=== PATIENT | male | born 1985 | race Hispanic/Latino ===

== ENCOUNTER → 2020-02-04 | Day surgery (SDC) | payer OTHER ==
[~2020-02-04] MED LIST: ACETAMINOPHEN/CODEINE 300MG - 30MG TAB ONE; CEFAZOLIN SOD 1 GM/NS 50ML 50 ML IV ONE; DEXAMETHASONE SOD PHOS INJ 4 MG/ML VIAL ONE; FENTANYL CITRATE/PF 100MCG/2 ML INJ ONE; KETOROLAC TROMETHAMINE 30 MG/ML VIAL ONE; LIDOCAINE 2%/ EPINEPHRINE 20ML MDV ONE; LIDOCAINE HCL 2% LOCAL INJ 5 ML SDV VIAL INJ ONE; MIDAZOLAM HCL 2 MG/2 ML VIAL ONE; ONDANSETRON HCL INJ 2MG/ML 2ML 2 MG/ML VIAL ONE; PROPOFOL IV EMULSION 10 MG/ML 20 ML VIAL ONE; ROPIVACAINE 0.5% 5 MG/ML 30 ML SDV ONE; SEVOFLURANE INHAL SOLN 250 ML PEN BTL ONE
--- NOTE | 2020-02-04 09:19 | Operative Report ---
DATE OF PROCEDURE: 02/04/2020 SURGEON: Saleem Patino MD NARCOTICS AGENT: Juan Miguel Gilbert, certified PA. PREOPERATIVE DIAGNOSIS: Right knee medial meniscal tear, anterior cruciate ligament tear. POSTOPERATIVE DIAGNOSIS: Right knee medial meniscal tear, anterior cruciate ligament tear. PROCEDURE: Right knee arthroscopy, partial medial meniscectomy, ACL reconstruction using hamstring allograft. 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 He has complained of pain and instability for years. This is worsened in the last few months. He would like to have this surgically reconstructed. The risks and benefits of the procedure have been discussed. The recovery has been explained. The pros and cons of allograft versus autograft have been thoroughly explained. He states he understands and wishes to proceed. PROCEDURE IN DETAIL: The patient was brought to the operating room and placed under general anesthetic. He received prophylactic antibiotics and a regional block in the holding area. His right lower extremity was prepped and draped in a sterile manner. A preoperative time-out was performed. The extremity was exsanguinated and a proximal tourniquet was inflated to 300 mmHg. Standard arthroscopy portals were established. The knee was insufflated with sterile saline and systematically inspected. He was noted to have a complex tear of the medial meniscus. There was a large radial fragment that was flipped up into the medial gutter. A partial medial meniscectomy was performed using a combination of biting forceps and a mechanical shaver. The meniscus was severely frayed and worn. I would estimate that 40% of the entire meniscus was excised. The articular surfaces were well preserved. The patellofemoral groove was also noted to be normal. The lateral compartment was inspected and probed. There was no evidence of any lateral meniscal tear or wear in the lateral compartment. The anterior cruciate ligament was chronically torn. A bone-cutting bur was used to perform a notchplasty. An extra-articular alignment guide was used to place a guide pin through the footprint of the previous ACL. The placement of this pin was also referenced off the posterior border of the anterior horn of the lateral meniscus. A hamstring allograft was sized on the back table at 10 mm in diameter. A 10 mm reamer was placed over the guide pin. The knee was cleared of all bone debris. A 5 mm [id number] guide was then used to place a femoral guide pin. This was brought out the anterior cortex and soft tissue. This was reamed to 35 mm using an [place] 10 mm reamer. The 4.0 mm Endobutton drill was then placed. The total length of the Endobutton was 45 mm. A 20 mm Endobutton was chosen. This was attached to the graft. The graft was passed and the Endobutton was deployed over the anterolateral femoral cortex. The knee was cycled with tension applied. A 10 mm x 25 mm bioabsorbable interference screw was placed into the tibial tunnel. The knee was inspected and noted to have a negative Giovanny's test. The graft was probed and noted to be under appropriate tension. There was no evidence of anterior impingement. The knee was thoroughly irrigated with sterile saline. The arthroscopic instruments were removed. The portal incisions and tibial incisions were closed with interrupted nylon stitches. A sterile bandage and a [place] brace were applied. Estimated blood loss was less than 5 mL. All needle and sponge counts were correct. Saleem Patino MD DR/PRIMO /[id number]
[2020-02-04 09:45] VITALS: BP 138/78
== END | disposition home or self-care (01) ==
LOC: OR 05:33
PROVIDERS: ATTEND Specialist
DX: S83.231A Complex tear of medial meniscus, current injury, right knee, initial encounter (principal); S83.511A Sprain of anterior cruciate ligament of right knee, initial encounter; K21.9 Gastro-esophageal reflux disease without esophagitis; Z01.812 Encounter for preprocedural laboratory examination; Z11.59 Encounter for screening for other viral diseases; Z68.33 Body mass index [BMI] 33.0-33.9, adult
CPT/HCPCS: 29881; C1713; J0690; J1100; J1885; J2001; J2250; J2405; J2795; J3010; U0002

== ENCOUNTER → 2020-02-29 | Outpatient (RCR) | payer OTHER | LOC: PT 02-20 15:11 | PROVIDERS: ATTEND Specialist | DX: S83.511A Sprain of anterior cruciate ligament of right knee, initial encounter (principal); M62.81 Muscle weakness (generalized); M25.561 Pain in right knee; M25.661 Stiffness of right knee, not elsewhere classified; M25.461 Effusion, right knee | CPT/HCPCS: 97010; 97110 ×3; 97162; G0283 ×2 ==

== ENCOUNTER 2020-03-03 14:55 | Outpatient (RCR) | payer OTHER | END 2020-03-31 | LOC: PT 14:55 | PROVIDERS: ATTEND Specialist | DX: S83.511A Sprain of anterior cruciate ligament of right knee, initial encounter (principal); M62.81 Muscle weakness (generalized); M25.561 Pain in right knee; M25.661 Stiffness of right knee, not elsewhere classified; M25.461 Effusion, right knee | CPT/HCPCS: 97110; G0283 ==